=== PATIENT | female | born 1990 | race Caucasian/White ===

== ENCOUNTER 2020-05-29 16:41 | Emergency (ER) | payer BC ==
[~2020-05-29] VITALS: Ht 167.6 cm; Wt 109.0 kg
[2020-05-29 16:50] VITALS: BP 123/72
[2020-05-29] MEDS ORDERED: DIPH,PERTUSS(ACELL),TET VAC/PF 0.5 ML SYRINGE. VAX IM ONE ×2 (17:45→18:00)
--- NOTE | 2020-05-29 17:45 | PHYS DOC ---
Past History Past Medical History: No Pertinent History Past Surgical History: Other Additional Past Surgical Histo: wisdom teeth Alcohol Use: Rarely General Adult EDM: Chief Complaint: LACERATION/AVULSION HPI: HPI: "..I tripped and fell on the concrete... busted my lip... " Patient is a 30 year old female who presents with above hx and trip, fall, laceration to Lt. lower lip and mouth. Patient has a 0.4 cm laceration to lower lip external. An internal laceration approximately 1 cm on the buccal mucosa. Patient has a good bite. No loose teeth. Lacerations do not communicate. Patient denies any loss of consciousness but was stunned in the fall. No neck tenderness. Patient is right-hand dominant. Does have an abrasion to her right elbow and right knee. Patient denies other injury. Patient not on any anticoagulants. No history of coagulopathy. Normally healthy. Up-to-date with vaccinations but does not remember her last tetanus. Review of Systems: Review of Systems: Constitutional: Denies fever or chills Eyes: Denies change in visual acuity HENT: Complains of lacerations outer and inner lip Respiratory: Denies cough or shortness of breath Cardiovascular: Denies chest pain or edema GI: Denies abdominal pain, nausea, vomiting, bloody stools or diarrhea : Denies dysuria Musculoskeletal: Complains of contusion right elbow right knee Integument: Denies rash Neurologic: Denies headache, focal weakness or sensory changes Endocrine: Denies polyuria or polydipsia Lymphatic: Denies swollen glands Psychiatric: Denies depression or anxiety Family History: Family History: Noncontributory to presentation Current Medications: Current Meds: See nursing for home meds Allergies: Allergies: No known drug allergies Physical Exam: PE: Constitutional: Moderate acute distress, non-toxic appearance. [] HENT: Normocephalic, 0.4 cm laceration posterior left lower lip and a 1 cm laceration internal buccal mucosa, bilateral external ears normal, TMs clear. Oropharynx moist, no oral exudates, nose normal. [] Eyes: PERRLA, EOMI, conjunctiva normal, no discharge. [] Neck: Normal range of motion, no tenderness, supple, no stridor. [] Cardiovascular:Heart rate regular rhythm, no murmur [] Lungs & Thorax: Bilateral breath sounds equal at apex auscultation [] Abdomen: Bowel sounds normal, soft, no tenderness, no masses, no pulsatile masses. Obese Skin: Warm, dry, no erythema, no rash. Contusions right knee right elbow Back: No tenderness, no CVA tenderness. [] Extremities: No tenderness, no cyanosis, no clubbing, ROM intact, no edema. [] Neurologic: Alert and oriented X 3, normal motor function, normal sensory function, no focal deficits noted. [] DTRs +2 patella and brachial. [employer] equal. Amatory health problems. No drift. Psychologic: Affect anxious, judgement normal, mood normal. [] Current Patient Data: Vital Signs: Vital Signs Date Time Temp Pulse Resp B/P (MAP) Pulse Ox O2 Delivery O2 Flow Rate FiO2 05/29/20 16:50 98.7 88 16 123/72 (89) 100 EKG: EKG: [] Radiology/Procedures: Radiology/Procedures: [] Heart Score: Risk Factors: Risk Factors: DM, Current or recent (<one month) smoker, HTN, HLP, family history of CAD, obesity. Risk Scores: Score 0 - 3: 2.5% MACE over next 6 weeks - Discharge Home Score 4 - 6: 20.3% MACE over next 6 weeks - Admit for Clinical Observation Score 7 - 10: 72.7% MACE over next 6 weeks - Early Invasive Strategies Course & Med Decision Making: Course & Med Decision Making Pertinent Labs and Imaging studies reviewed. (See chart for details) Procedure note-patient used hydrogen peroxide to clean mouth noted no external drainage from laceration site. External laceration site cleaned with hydroperoxide. The small laceration closed with tissue glue. Patient to take Tylenol and ibuprofen for pain. Recommend only Tylenol first 24 to 48 hours. Patient not to apply antibiotic to lower lip because this will dissolve the tissue glue. Patient to expect increase ecchymosis and swelling next 24-48 hrs. Would resume a soft diet or liquid diet at first. Rinse mouth with hydrogen peroxide, Listerine or warm salt water after eating. Follow-up primary care. Return if any concerns. Instructed her significant other return if there is any mental status changes. Patient's tetanus was updated. Impression: 1. Trip and fall 2. External laceration 0.4 cm left lower lip 3. Internal buccal mucosa left lower lip 1 cm 4. Contusions and abrasions to the Rt. knee and elbow during fall. [] Dragon Disclaimer: Dragon Disclaimer: This electronic medical record was generated, in whole or in part, using a voice recognition dictation system. Departure Departure: Referrals: PCP,NO (PCP) Vladislav Disclaimer This chart was dictated in whole or in part using Voice Recognition software in a busy, high-work load, and often noisy Emergency Department environment. It may contain unintended and wholly unrecognized errors or omissions. ADELE HERNANDES MD May 29, 2020 17:45
== END 2020-05-29 18:15 | disposition home or self-care (01) ==
LOC: ER 16:41
DX: S01.511A Laceration without foreign body of lip, initial encounter (principal); S01.512A Laceration without foreign body of oral cavity, initial encounter; S80.01XA Contusion of right knee, initial encounter; S50.01XA Contusion of right elbow, initial encounter; W01.0XXA Fall on same level from slipping, tripping and stumbling without subsequent striking against object, initial encounter; Y93.89 Activity, other specified; Y92.89 Other specified places as the place of occurrence of the external cause; Y99.8 Other external cause status
CPT/HCPCS: 12011; 90471; 90715; 99284